=== PATIENT | male | born 1955 | race Caucasian/White ===

== ENCOUNTER 2017-05-20 11:48 | Emergency (ER) | payer SELFPAY ==
--- NOTE | 2017-05-20 13:24 | EDPHY ---
General - History Smoking Status: Never smoked Time Seen by Provider: 05/20/17 13:30 Narrative: CHIEF COMPLAINT: Headache HISTORY OF PRESENT ILLNESS: Patient complains of 3 days headache. This is right-sided over the yarsanism. Gradual onset. Constant duration but does wax and wane. At times it is severe , at times it is mild. No trauma or injury. No radiating pain. No nausea or vomiting. No visual disturbance. No neck pain or stiffness. No difficulty opening or closing the jaw. No previous history of headaches. No visual disturbance. Much worse at night. No response to aspirin. No other associated complaints or modifying factors. REVIEW OF SYSTEMS: Ten systems reviewed and are negative unless otherwise noted in the HPI PCP: None currently. Previously Dr. Granado SPECIALISTS: None PAST MEDICAL HISTORY: Denies any significant medical history PAST SURGICAL HISTORY: No surgical history SOCIAL HISTORY: Nonsmoker. Occasional alcohol. No drug use. 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 Lives here locally FAMILY HISTORY: Noncontributory EXAMINATION General Appearance: Alert, no distress Head: normocephalic, atraumatic. No tenderness of the right yarsanism. No Addison sign. No raccoon eyes. Eyes: Pupils equal and round, no conjunctival pallor or injection ENT, Mouth: Mucous membranes moist Neck: Normal inspection, supple, non-tender. Painless range of motion all planes. No meningismus. Respiratory: Lungs are clear to auscultation Cardiovascular: Regular rate and rhythm Gastrointestinal: Abdomen is soft and nontender Back: non-tender, no bony abnormalities Neurological: GCS 15. Cranial nerves 2-12 grossly intact. A&O, nonfocal, normal gait. Strength is symmetric in all 4 limbs. No pronator drift. Normal finger to nose. Skin: Warm and dry, no rash. No petechiae or purpura. No periorbital cellulitis. Extremities: Nontender, no pedal edema. Psych range of the extremities. Psychiatric: Mood and affect normal DIFFERENTIAL DIAGNOSES: Including but not limited to yarsanism cell arteritis, subarachnoid hemorrhage, subdural hematoma, epidural hematoma, meningitis, intracerebral mass MDM: 1:45 p.m. Right-sided temporal headache of 3 days duration. This was not sudden onset. This is gradual and paroxysmal. Neuro exam is within normal limits. Visual hsu are intact by confrontation. There is no nuchal rigidity or meningismus. I have ordered CT scan of the head and laboratory studies. 2:45 p.m. Notified by radiologist Dr. Sheldon. CT scan is unremarkable for any acute findings. Laboratory studies are negative including a negative ESR. CRP is still pending 3:15 p.m. Patient re-evaluated. Headache has returned. It is described as mild. We discuss medications here to see if he responds. He is agreed to this. He is resting comfortably in no acute distress. 4:05 p.m. Patient had initially agreed to proceed with IV medications but has now declined. He is fearful of cost and would like to go home. I discussed this with him. We discussed the risks, benefits and alternatives. He is willing to assume the risk being discharged home without further treatment or evaluation. I do not feel he has any emergent abnormalities, and his neuro exam remains normal. We discussed discharge home with ibuprofen, Benadryl and Fioricet as prescribed. We discussed follow up with primary care physician and Neurology as discussed and provided. We also discussed return to the emergency department within 24 hr if no significant improvement or resolution. Further he is to return to the ER immediately for any sudden change, neck pain or stiffness, fever, visual disturbance, vomiting. He is comfortable this plan and discharged home stable condition. SUPERVISION: Patient was independently examined, but I discussed the case with my secondary supervising physician Dr. Law (Patrick Frausto) - Diagnostics Imaging Results: Imaging Impressions Head CT 05/20/17 13:52 Impression: 1. No acute intracranial findings. If symptoms persist and clinical suspicion warrants, consider MRI. 2. Diffuse cerebral atrophy with periventricular and subcortical low attenuation consistent with chronic microvascular ischemic gliosis. 3. Additional findings as above. Findings discussed with Patrick Frausto PA-C, on May 20, 2017 at 1451 hours. - Objective Vital Signs: Initial Vital Signs Temperature (C) 36.4 C 05/20/17 11:56 Heart Rate 86 05/20/17 11:56 Respiratory Rate 17 05/20/17 11:56 Blood Pressure 141/118 H 05/20/17 11:56 O2 Sat (%) 93 05/20/17 11:56 O2 Delivery Mode Room Air Allergies/Adverse Reactions: No Known Allergies Allergy (Unverified 05/20/17 11:56) Home Medications: Medication Instructions Recorded Aspirin 325 mg (*) 05/20/17 Codeine/Butalbital/ASA/Caffein 1 each PO Q4 PRN #11 capsule 05/20/17 [Fiorinal with Codeine #3 Cap] Laboratory Results: Laboratory Results 05/20/17 14:05 05/20/17 14:05 05/20/17 05/20/17 05/20/17 14:05 14:05 14:05 WBC RBC Hgb Hct MCV MCH MCHC RDW Plt Count MPV Neut % (Auto) Lymph % (Auto) [place] % (Auto) Eos % (Auto) Baso % (Auto) Nucleat RBC Rel Count Absolute Neuts (auto) Absolute Lymphs (auto) Absolute Monos (auto) Absolute Eos (auto) Absolute Basos (auto) Absolute Nucleated RBC Immature Gran % Immature Gran # ESR PT 15.2 SEC H SEC (12.0-15.0) INR 1.18 H (0.83-1.16) APTT 34.6 SEC SEC (23.0-38.0) Sodium 142 mEq/L mEq/L (135-145) Potassium 4.1 mEq/L mEq/L (3.5-5.2) Chloride 108 mEq/L mEq/L (97-110) Carbon Dioxide 23 mEq/l mEq/l (22-31) Anion Gap 11 mEq/L mEq/L (8-16) BUN 9 mg/dL mg/dL (7-23) Creatinine 0.8 mg/dL mg/dL (0.7-1.3) Estimated GFR > 60 Glucose 85 mg/dL mg/dL (70-100) Calcium 10.0 mg/dL mg/dL (8.5-10.4) C-Reactive Protein < 5.0 mg/L mg/L (<10.0) 05/20/17 14:05 WBC 6.33 10^3/uL 10^3/uL (3.80-9.50) RBC 5.34 10^6/uL 10^6/uL (4.40-6.38) Hgb 16.2 g/dL g/dL (13.7-17.5) Hct 45.5 % % (40.0-51.0) MCV 85.2 fL fL (81.5-99.8) MCH 30.3 pg pg (27.9-34.1) MCHC 35.6 g/dL g/dL (32.4-36.7) RDW 12.6 % % (11.5-15.2) Plt Count 227 10^3/uL 10^3/uL (150-400) MPV 9.7 fL fL (8.7-11.7) Neut % (Auto) 51.5 % % (39.3-74.2) Lymph % (Auto) 34.6 % % (15.0-45.0) [place] % (Auto) 6.6 % % (4.5-13.0) Eos % (Auto) 6.3 % % (0.6-7.6) Baso % (Auto) 0.8 % % (0.3-1.7) Nucleat RBC Rel Count 0.0 % % (0.0-0.2) Absolute Neuts (auto) 3.26 10^3/uL 10^3/uL (1.70-6.50) Absolute Lymphs (auto) 2.19 10^3/uL 10^3/uL (1.00-3.00) Absolute Monos (auto) 0.42 10^3/uL 10^3/uL (0.30-0.80) Absolute Eos (auto) 0.40 10^3/uL 10^3/uL (0.03-0.40) Absolute Basos (auto) 0.05 10^3/uL 10^3/uL (0.02-0.10) Absolute Nucleated RBC 0.00 10^3/uL 10^3/uL (0-0.01) Immature Gran % 0.2 % % (0.0-1.1) Immature Gran # 0.01 10^3/uL 10^3/uL (0.00-0.10) ESR 2 MM/HR MM/HR (0-20) PT INR APTT Sodium Potassium Chloride Carbon Dioxide Anion Gap BUN Creatinine Estimated GFR Glucose Calcium C-Reactive Protein Medications Given: Discontinued Medications Diphenhydramine HCl (Benadryl Injection) 25 mg IVP EDNOW ONE Stop: 05/20/17 15:18 Last Admin: 05/20/17 15:41 Dose: Not Given Ketorolac Tromethamine (Toradol) 30 mg IVP EDNOW ONE Stop: 05/20/17 15:18 Last Admin: 05/20/17 15:41 Dose: Not Given Metoclopramide HCl (Reglan Injection) 10 mg IVP EDNOW ONE Stop: 05/20/17 15:18 Last Admin: 05/20/17 15:41 Dose: Not Given Departure - Departure Disposition: Home, Routine, Self-Care Clinical Impression: Headache Qualifiers: Headache type: unspecified Headache chronicity pattern: acute headache Intractability: not intractable Qualified Code(s): R51 - Headache Condition: Good Instructions: Ibuprofen (By mouth), Diphenhydramine (By mouth), Butalbital/ Acetaminophen/Caffeine/Codeine (By mouth), Acute Headache (ED) Additional Instructions: 1. Fioricet medication as prescribed as needed 2. Ibuprofen 400 mg [id number] every 6-8 hours as needed 3. Benadryl 25 mg [id number] every 6 hr as needed 4. Contact the on-call primary care physician Dr. Cooley 5. Contact the on-call neurologist doctor Dilcia for outpatient follow-up 6. Return to the emergency department if no significant improvement within the next 24 hr 7. Return to ER for any sudden change, neck pain or stiffness, fever, nausea, vomiting or visual disturbance Referrals: Olayinka Ha DO [Doctor of Osteopathy] - As per Instructions Roro Cooley MD [Medical Doctor] - As per Instructions Prescriptions: Codeine/Butalbital/ASA/Caffein [Fiorinal with Codeine #3 Cap] 1 each PO Q4 PRN # 11 capsule PRN Reason: Headache
[2017-05-20 14:06] VITALS: RESP 16
[2017-05-20 14:17] LABS: PLATELET COUNT 227 10^3/uL (150-400)
[2017-05-20 14:28] LABS: INR 1.18 (0.83-1.16); PROTIME(PATIENT) 15.2 SEC (12.0-15.0)
[2017-05-20] MEDS ORDERED: METOCLOPRAMIDE 10 MG/2 ML VIAL IVP ONE (15:17)
[2017-05-20] MEDS ORDERED: KETOROLAC 30 MG/1 ML SDV IVP ONE (15:17)
[2017-05-20 17:01] VITALS: BP 140/80; PULSE 76; TEMP 98.6; O2SAT 98
== END 2017-05-20 17:03 | disposition home or self-care (01) ==
DX: R51 Headache (principal); Z79.82 Long term (current) use of aspirin
CPT/HCPCS: J1200; J1885; J2765